=== PATIENT | male | born 1960 | race Caucasian/White ===

== ENCOUNTER 2020-04-16 11:27 | Day surgery (SDC) | payer OTHER | END 2020-04-16 13:00 | disposition home or self-care (01) | LOC: SDC-PAIN 11:27 | PROVIDERS: ATTEND Psychiatry & Neurology Pain Medicine | DX: Z53.09 Procedure and treatment not carried out because of other contraindication (principal); G90.529 Complex regional pain syndrome I of unspecified lower limb ==